=== PATIENT | male | born 1970 | race Caucasian/White ===

== ENCOUNTER 2018-02-21 05:23 | Emergency (ER) | payer MEDICAID ==
[~2018-02-21] VITALS: Ht 182.9 cm; Wt 77.4 kg
[2018-02-21 05:24] VITALS: BP 150/90
[2018-02-21] MEDS ORDERED: DIAZEPAM 5 MG TABLET ONE (05:54)
[2018-02-21] MEDS ORDERED: KETOROLAC 30 MG/1 ML ONE (05:54)
[2018-02-21] MEDS ORDERED: DIAZEPAM 5 MG TABLET PO ONE (06:00)
[2018-02-21] MEDS ORDERED: KETOROLAC 30 MG/1 ML IM ONE (06:00)
== END 2018-02-21 08:41 | disposition home or self-care (01) ==
LOC: ED 07:56
DX: M25.511 Pain in right shoulder (principal); M54.12 Radiculopathy, cervical region
CPT/HCPCS: 72050; 73030; 96372; 99284; J1885